=== PATIENT | female | born 1940 | race Caucasian/White ===

== ENCOUNTER 2019-09-03 09:45 | Day surgery (SDC) | payer MEDICARE, OTHER ==
--- NOTE | 2019-09-03 08:34 | HP ---
DATE OF SURGERY: 09/03/2019 HISTORY OF PRESENT ILLNESS: The patient is a 78 year-old with dementia. History taken from . She had a positive Cologuard. No bloody stools. No change in bowel habits. No pain. PAST MEDICAL HISTORY: Dementia. She was not able to answer the questions. Anxiety. Depression. PAST SURGICAL HISTORY: Cataract surgery. Appendectomy. section. Orthopedic surgery. MEDICATIONS: Aspirin, atorvastatin, bupropion, potassium, clonazepam, clopidogrel, amlodipine, cholecalciferol, aripiprazole, losartan, donepezil, memantine, melatonin, vitamin E, vitamin D3. ALLERGIES: CEPHALEXIN. PENICILLIN. SULFA. CEFINIR. FAMILY HISTORY: Negative in regards to this problem. Negative for colon cancer. SOCIAL HISTORY: No smoking or alcohol abuse. REVIEW OF SYSTEMS: Fourteen systems reviewed. No chest pain or palpitations other systems negative or noncontributory as above and per preadmission questionnaire. PHYSICAL EXAMINATION: GENERAL: A chronically ill female. HEENT: Sclerae nonicteric. NECK: No JVD. CHEST: Equal excursion, nonlabored breathing. CVS: Regular rate and rhythm. ABDOMEN: Soft. No peritoneal signs. EXTREMITIES: No significant edema. NEURO: Alert but she does have dementia, moving extremities symmetrically. No gross motor deficits noted. RECTAL: Deferred timed to endoscopy exam. IMPRESSION: Need for follow up screening colonoscopy. I feel she would benefit from colonoscopy. Risks and benefits explained in detail but not limited to bleeding or infection, risk of bowel injury or perforation possibly requiring open procedure, risk of missed or nondiagnosis or incomplete exam possibly requiring barium enema, other studies or procedures, general risk of anesthesia or sedation, risk of bowel prep but not limited to. The understands and agrees to the planned procedure, will proceed with outpatient follow up screening colonoscopy.
[~2019-09-03 09:45] MED LIST: Lactated Ringers 1,000 ML IV ONE; Lactated Ringers 1,000 ML IV SCH
[2019-09-03] MEDS ORDERED: DIPRIVAN 200 MG/20 ML IV ONE ×2 (10:25→10:51)
[2019-09-03] MEDS ORDERED: Ketamine HCl 50 MG/ML ONE (10:25)
[2019-09-03] MEDS ORDERED: Lactated Ringers 1,000 ML IV ONE (11:19)
--- NOTE | 2019-09-03 12:48 | OP ---
SURGERY DATE/TIME: 09/03/2019 1030 PREOPERATIVE DIAGNOSIS: Need for screening colonoscopy, question whether she had a positive Cologuard or not. No recent colonoscopy. Need for screening. POSTOPERATIVE DIAGNOSES: 1) Poor bowel prep. 2) Small raised lesion rectum versus hyperplastic lesion, path pending. 3) Small internal hemorrhoids. PROCEDURES: 1) Colonoscopy what was felt to be the cecal area palpation of right lower quadrant. However, poor prep limiting exam for small to medium lesion. 2) Hot biopsy raised lesion versus hyperplastic lesion rectum. SURGEON: Dr. Elmo Ty. ANESTHESIA: MAC. ESTIMATED BLOOD LOSS: Minimal. INDICATIONS: As noted above. Risks and benefits explained in detail but not limited to and consent obtained. DESCRIPTION OF PROCEDURE AND FINDINGS: The patient is taken to the operating room. MAC anesthesia introduced. After official time out and no disagreement with planned procedure, digital rectal exam did not reveal any rectal masses. She did have some small internal hemorrhoids. Video colonoscope inserted and passed up through the tortuous poorly prepped colon. Liquidy semi-solid and solid stool throughout the colon. The scope was able to be passed down the transverse colon to the right lower quadrant, palpation right lower quadrant. It seemed to be the cecal area although given the very limited prep, I feel it is best to go ahead and do barium enema for further evaluation. On slow and careful withdrawal of the scope over the next 7 or 8 minutes there were no signs of any large polyps, masses or obstructing lesions. Liquidy semi-solid suctioned as well as possible but very much limited the exam as the chunks were too large to suction through the scope. Otherwise there were no signs of any obvious large obstructing lesions but again small to medium size polyps or lesions may not have been able to be seen. Back to the rectum had small internal hemorrhoids, had small raised lesions versus hyperplastic lesion versus early polyp removed with hot biopsy forceps with brief bursts of cautery. Good hemostasis noted. Findings discussed with the family out in the waiting area. Options were discussed. It was felt she would benefit from consideration of dual or air contrast barium enema if it showed anything specific or concerning might need to repeat the scope. Other option would be to reprep and bring her back for the same procedure with better bowel prep. feels try the barium enema first. Will get the barium enema and get the biopsy results and see her back in the office after the results.
[2019-09-03 12:51] VITALS: BP 147/71; PULSE 72; O2SAT 95
== END 2019-09-03 12:35 | disposition home or self-care (01) ==
LOC: SDC 09:45
PROVIDERS: ATTEND Surgery
DX: Z12.11 Encounter for screening for malignant neoplasm of colon (principal); D12.8 Benign neoplasm of rectum; K64.8 Other hemorrhoids; K62.89 Other specified diseases of anus and rectum
CPT/HCPCS: 88305; 99100; J2704

== ENCOUNTER 2020-10-13 12:25 | Emergency (ER) | payer MEDICARE, OTHER ==
[2020-10-13 13:35] VITALS: BP 134/86
--- NOTE | 2020-10-13 14:55 | XRAY ---
Exam: CT of the abdomen and pelvis without IV contrast from 10/13/2020. CTDI: 8.93 mGy Comparison: None. Indication: 80-year-old female with no bowel movement for almost 2 weeks; ? Obstruction. The patient has a history of prior appendectomy and 2 sections. Technique: Non-IV contrast axial images were obtained through the abdomen and pelvis without IV contrast. No oral contrast was given. Reconstructed coronal and sagittal images were created and reviewed. Findings: The visualized heart appears of unremarkable size. There is a mild retrocardiac hiatal hernia measuring at least 3.25 cm in diameter. The visualized lung bases reveal minimal scattered linear atelectasis/scarring at the left lung base. Assessment of the solid organs is limited without the use of IV contrast. A couple small calcified granulomas are seen within the liver. Otherwise, the liver appears unremarkable without evidence of definite mass or intrahepatic biliary duct distention. The gallbladder is partially distended and reveals no dense calcifications within it. The spleen is of normal size and reveals no mass. There appears to be a small round splenule measuring 1.3 cm in diameter at the medial margin of the lower portion of the spleen on axial image #28 of series 2. The pancreas and adrenal glands appear unremarkable. The kidneys appear of average size and reveal no calculi, hydronephrosis, or definite mass. Moderate atherosclerotic calcification is seen within the abdominal aorta, the proximal portion of both renal arteries, and branches of the iliac arteries. No abdominal aortic aneurysm or abnormal retroperitoneal lymphadenopathy is seen. There is no free intraperitoneal air. A minimal fat-containing umbilical hernia is seen on the midline sagittal image #112. No bowel containing ventral hernia is seen. There is abundant colonic stool seen throughout its course consistent with significant constipation. However, I see no evidence of bowel obstruction. The patient is status post appendectomy by history. No definite bowel wall thickening is seen. Minimal high attenuation material is seen within the gastric lumen, probably representing medication. The uterus appears relatively small and is anteflexed. A small calcification is seen within the anterior aspect of the uterine fundus, perhaps representing a small calcified fibroid. No abnormal adnexal mass or enlarged pelvic lymph nodes are seen. There is no free intraperitoneal fluid. The pelvic sidewalls appear unremarkable. Again, abundant stool is seen within the visualized rectosigmoid colon. The urinary bladder is only minimally distended with urine. The skeleton reveals demineralization of the bones. No acute fracture or aggressive bone lesion is seen. Prominent anterolateral osteophytes are seen within the lower thoracic spine. There is mild multilevel degenerative disc disease throughout the lumbar spine, most pronounced at L5-S1. A Schmorl's node is seen within the left aspect of the inferior vertebral endplate of L4. I believe there is some mild central canal stenosis at L5-S1 (see axial image #51 of series 2). Impression: 1. Abundant stool is seen throughout the colon consistent with significant constipation. However, I see no abnormal bowel distention to suggest mechanical bowel obstruction. Nor is there free air or free fluid. 2. Mild retrocardiac hiatal hernia. 3. No other acute process is seen within the abdomen or pelvis. 4. Skeletal findings, as discussed above.
--- NOTE | 2020-10-13 15:42 | ERPHSYRPT ---
- History of Present Illness Time Seen by Provider: 10/13/20 12:50 Source: patient Exam Limitations: no limitations Patient Subjective Stated Complaint: pt reports constipation with last normal BM approx 8 days ago, denies any abdominal pain, nausea, vomiting. pt with fabian, at bedside as historian. states approx 10 years ago pt had this same issue and was dx with a "twisted intestine". states the issue resolved on its own. Triage Nursing Assessment: pt is aox3 at this time, pupils perrl, afebrile, resps easy and non labored, cap refill < 3 seconds, radial pulses strong and equal, pt abd soft, non tender, appears distended, bowel sounds normoactive x 4. pt skin pink warm dry. Physician History: Patient is a 80-year-old female with a history of dementia/poor historian presents to our ED with complaints of constipation x8 days. Patient is here with her who is concerned. However patient denies pain. No nausea or vomiting. No diarrhea. No trauma. No fever. Patient is currently asymptomatic. states they have tried many methods of laxative including suppository magnesium citrate with no production of stool. Patient and voiced no other complaints or concerns at this time. Timing/Duration: day(s) (8 days) Severity: moderate Modifying Factors: Improves With: nothing Associated Symptoms: denies symptoms Allergies/Adverse Reactions: cephalexin monohydrate [From Keflex] Allergy (Mild, Verified 10/13/20 13:02) Penicillins Allergy (Mild, Verified 10/13/20 13:02) Sulfa (Sulfonamide Antibiotics) [Sulfa(Sulfonamide Antibiotics)] Allergy (Mild, Verified 10/13/20 13:02) cefdinir [Cefdinir] Allergy (Verified 10/13/20 13:02) Home Medications: Amlodipine Besylate 5 mg [Norvasc 5 mg] 5 mg PO DAILY 05/30/13 [History] Bupropion HCl [Wellbutrin] 200 mg PO BID 07/21/14 [History] Clonazepam 0.5 mg [Klonopin 0.5 MG] 0.25 mg PO BID 07/21/14 [History] Clonazepam 0.5 mg [Klonopin 0.5 MG] 1 mg PO HS 07/21/14 [History] Losartan Potassium 25 mg PO DAILY 04/17/15 [History] Melatonin/Pyridoxine [Melatonin 5 mg Tablet] 10 mg PO HS 04/17/15 [History] Aripiprazole [Abilify] 2.5 mg PO BID 11/11/16 [History] Cholecalciferol (Vitamin D3) [Vitamin D] 1,000 unit PO DAILY 11/11/16 [History] Donepezil HCl 10 mg [Aricept 10 MG] 10 mg PO DAILY 11/11/16 [History] Vitamin E 400 unit PO DAILY 11/11/16 [History] Memantine HCl [Namenda] 10 mg PO BID 11/23/17 [History] Hx Tetanus, Diphtheria Vaccination/Date Given: Yes Hx Influenza Vaccination/Date Given: Yes Hx Pneumococcal Vaccination/Date Given: Yes Immunizations Up to Date: Yes Travel Risk - International Travel Have you traveled outside of the country in past 3 weeks: No If Yes, where;: n - Coronavirus Screening Are you exhibiting any of the following symptoms?: No Close contact with a COVID-19 positive Pt in past 14-21 Days: No - Review of Systems Constitutional: No Symptoms, No Fever, No Chills Eyes: No Symptoms Ears, Nose, & Throat: No Symptoms Respiratory: No Symptoms, No Cough, No Dyspnea Cardiac: No Symptoms, No Chest Pain, No Edema, No Syncope Abdominal/Gastrointestinal: No Symptoms, No Abdominal Pain, No Nausea, No Vomiting, No Diarrhea Genitourinary Symptoms: No Symptoms, No Dysuria Musculoskeletal: No Symptoms, No Back Pain, No Neck Pain Skin: No Symptoms, No Rash Neurological: No Symptoms, No Dizziness, No Focal Weakness, No Sensory Changes Psychological: No Symptoms Endocrine: No Symptoms Hematologic/Lymphatic: No Symptoms Immunological/Allergic: No Symptoms All Other Systems: Reviewed and Negative - Past Medical History Pertinent Past Medical History: Yes Neurological History: Dementia, Migraines ENT History: Cataracts Cardiac History: No Pertinent History Respiratory History: No Pertinent History Endocrine Medical History: No Pertinent History Musculoskeletal History: Osteoarthritis GI Medical History: No Pertinent History History: Other Psycho-Social History: Anxiety, Depression, Panic Disorder Female Reproductive Disorders: No Pertinent History Other Medical History: Pt spouse states that 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, 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 - Past Surgical History Past Surgical History: Yes Neuro Surgical History: No Pertinent History Cardiac: Cardiac Catheterization, Cardiac Stent Respiratory: No Pertinent History Gastrointestinal: Appendectomy Genitourinary: No Pertinent History Musculoskeletal: Orthopedic Surgery Female Surgical History: Section Other Surgical History: cataract surgery, right arm surgery - Social History Smoking Status: Former smoker How long have you smoked: 20 Exposure to second hand smoke: No Drug Use: none Patient Lives Alone: No - Nursing Vital Signs Nursing Vital Signs: Initial Vital Signs Temperature 97.5 F 10/13/20 12:44 Pulse Rate 75 10/13/20 12:44 Respiratory Rate 20 10/13/20 12:44 Blood Pressure 126/66 10/13/20 12:44 O2 Sat by Pulse Oximetry 96 10/13/20 12:44 Pain Scale Pain Intensity 0 - Physical Exam General Appearance: no apparent distress, alert Eye Exam: PERRL/EOMI, eyes nml inspection Ears, Nose, Throat Exam: normal ENT inspection, TMs normal, pharynx normal, moist mucous membranes Neck Exam: normal inspection, non-tender, supple, full range of motion Respiratory Exam: normal breath sounds, lungs clear, No respiratory distress Cardiovascular Exam: regular rate/rhythm, normal heart sounds, normal peripheral pulses Gastrointestinal/Abdomen Exam: soft, normal bowel sounds, No tenderness, No mass Back Exam: normal inspection, normal range of motion, No CVA tenderness, No vertebral tenderness Extremity Exam: normal inspection, normal range of motion, pelvis stable Neurologic Exam: alert, oriented x 3, cooperative, normal mood/affect, sensation nml, No motor deficits Skin Exam: normal color, warm, dry, No rash Lymphatic Exam: No adenopathy SpO2 Interpretation: normal SpO2: 97 O2 Delivery: Room Air - Course Nursing assessment & vital signs reviewed: Yes - CT Exams Abdomen/Pelvis CT Interpretation: Tele-radiologist Report (CAT scan reveals retrocardiac hiatal hernia, aortic calcification, small fat-containing umbilical hernia, constip ation and a small uterine fibroid. No bowel obstruction.) Ordered Tests: Active Orders 24 hr Category Date Time Status ABDOMEN AND PELVIS W/0 CONTRAS [CT] Stat Exams 10/13/20 13:01 Completed - Progress Progress: unchanged, improved Progress Note: 10/13/20 15:49 Patient reassessed. She is comfortable. We offered a enema in our ED however states that he has enema at home. They will give little more time to pass stool. No indication for further work-up at this time. Will discharge home. Patient and agree to follow-up with primary care doctor within 48 hours for reevaluation. Counseled pt/family regarding: diagnosis, need for follow-up, rad results - Departure Departure Disposition: Home Clinical Impression: Hiatal hernia, Aortic calcification, Umbilical hernia, Constipation, Uterine fibroid Condition: Stable Critical Care Time: No Referrals: PAULA CAPONE [Primary Care Provider] -
[2020-10-13 16:05] VITALS: PULSE 80; O2SAT 98
== END 2020-10-13 16:05 | disposition home or self-care (01) ==
LOC: ED 12:25
DX: K44.9 Diaphragmatic hernia without obstruction or gangrene (principal); I70.0 Atherosclerosis of aorta; K42.9 Umbilical hernia without obstruction or gangrene; K59.00 Constipation, unspecified; D25.9 Leiomyoma of uterus, unspecified; F03.90 Unspecified dementia, unspecified severity, without behavioral disturbance, psychotic disturbance, mood disturbance, and anxiety; Z79.899 Other long term (current) drug therapy; F41.9 Anxiety disorder, unspecified; F32.9 Major depressive disorder, single episode, unspecified
CPT/HCPCS: 74176; 99283

== ENCOUNTER 2021-03-31 07:46 | Emergency (ER) | payer MEDICARE ==
--- NOTE | 2021-03-31 08:09 | ERPHSYRPT ---
- History of Present Illness Time Seen by Provider: 03/31/21 07:47 Source: patient, family Patient Subjective Stated Complaint: cough, body aches Triage Nursing Assessment: pt to ED c/o cough and body aches for a few days. was seen in PCP office and given "shot and prescription for cough" but did not feel much better after leaving. no improvement since as reported by . productive wet sounding cough noted. no diff breathing or SOB reported. denies COVID exposure to their knowledge. Physician History: 80 years old female with episode history of dementia presented in the ER with chief complaint of cough congestion, sore throat generalized body aches for the last few days. She was evaluated outpatient, given symptomatic treatment with no significant relief. Patient reports having bouts of coughing which was initially dry but lately have some sputum production causing deep cough. Had sore throat initially which is improving now but patient feels worn out, fatigued with no energy. No fever or chills reported. No difficulty breathing, palpitations or chest pain but generalized soreness because of coughing. Did have Covid vaccine. Timing/Duration: day(s) (4), intermittent, gradual onset, worse Cough Quality/Degree: dry cough, productive cough Possible Cause: unknown cause Associated Symptoms: chest pain/soreness, cough, muscle aches, nasal congestion, sinus infection, sore throat, No fever, No shortness of breath Allergies/Adverse Reactions: cephalexin monohydrate [From Keflex] Allergy (Mild, Verified 03/31/21 08:03) Penicillins Allergy (Mild, Verified 03/31/21 08:03) Sulfa (Sulfonamide Antibiotics) [Sulfa(Sulfonamide Antibiotics)] Allergy (Mild, Verified 03/31/21 08:03) cefdinir [Cefdinir] Allergy (Verified 03/31/21 08:03) Home Medications: Amlodipine Besylate 5 mg [Norvasc 5 mg] 5 mg PO DAILY 05/30/13 [History] Bupropion HCl [Wellbutrin] 200 mg PO BID 07/21/14 [History] Clonazepam 0.5 mg [Klonopin 0.5 MG] 0.25 mg PO BID 07/21/14 [History] Clonazepam 0.5 mg [Klonopin 0.5 MG] 1 mg PO HS 07/21/14 [History] Losartan Potassium 25 mg PO DAILY 04/17/15 [History] Melatonin/Pyridoxine [Melatonin 5 mg Tablet] 10 mg PO HS 04/17/15 [History] Aripiprazole [Abilify] 2.5 mg PO BID 11/11/16 [History] Cholecalciferol (Vitamin D3) [Vitamin D] 1,000 unit PO DAILY 11/11/16 [History] Donepezil HCl 10 mg [Aricept 10 MG] 10 mg PO DAILY 11/11/16 [History] Vitamin E 400 unit PO DAILY 11/11/16 [History] Memantine HCl [Namenda] 10 mg PO BID 11/23/17 [History] Hx Tetanus, Diphtheria Vaccination/Date Given: Yes Hx Influenza Vaccination/Date Given: Yes Hx Pneumococcal Vaccination/Date Given: Yes Immunizations Up to Date: Yes Travel Risk - International Travel Have you traveled outside of the country in past 3 weeks: No - Coronavirus Screening Are you exhibiting any of the following symptoms?: Yes Symptoms: Cough: New Onset, Headaches/Body Aches/Fatigue Close contact with a COVID-19 positive Pt in past 14-21 Days: No - Vaccine Status Have you recieved a Covid-19 vaccination: Yes 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: [employer] - Vaccination Dates Date of 2cond Vaccination (if applicable): less than 3 mo ago - Review of Systems Constitutional: Fatigue, Weakness Eyes: No Symptoms Ears, Nose, & Throat: Nose Congestion, Throat Swelling Respiratory: Cough Cardiac: No Symptoms Abdominal/Gastrointestinal: No Symptoms Genitourinary Symptoms: No Symptoms Musculoskeletal: Myalgias Skin: No Symptoms Neurological: No Symptoms Psychological: Anxiety, Depression, Memory Loss Endocrine: No Symptoms Hematologic/Lymphatic: No Symptoms Immunological/Allergic: No Symptoms - Past Medical History Pertinent Past Medical History: Yes Neurological History: Dementia, Migraines ENT History: Cataracts Cardiac History: No Pertinent History Respiratory History: No Pertinent History Endocrine Medical History: No Pertinent History Musculoskeletal History: Osteoarthritis GI Medical History: No Pertinent History History: Other Psycho-Social History: Anxiety, Depression, Panic Disorder Female Reproductive Disorders: No Pertinent History Other Medical History: Pt spouse states that 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, 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 - Past Surgical History Past Surgical History: Yes Neuro Surgical History: No Pertinent History Cardiac: Cardiac Catheterization, Cardiac Stent Respiratory: No Pertinent History Gastrointestinal: Appendectomy Genitourinary: No Pertinent History Musculoskeletal: Orthopedic Surgery Female Surgical History: Section Other Surgical History: cataract surgery, right arm surgery - Social History Smoking Status: Former smoker How long have you smoked: 20 Exposure to second hand smoke: No Drug Use: none Patient Lives Alone: No - Female History Hx Now: No - Nursing Vital Signs Nursing Vital Signs: Initial Vital Signs Temperature 98.7 F 03/31/21 07:53 Pulse Rate 77 03/31/21 07:53 Respiratory Rate 20 03/31/21 07:53 Blood Pressure 157/82 03/31/21 07:53 O2 Sat by Pulse Oximetry 95 03/31/21 07:53 Pain Scale Pain Intensity 0 - Physical Exam General Appearance: no apparent distress, alert Eye Exam: PERRL/EOMI, eyes nml inspection Ears, Nose, Throat Exam: TMs normal, pharyngeal erythema Neck Exam: normal inspection, non-tender, supple, full range of motion Respiratory Exam: normal breath sounds, lungs clear, No chest tenderness Cardiovascular Exam: regular rate/rhythm, normal heart sounds Gastrointestinal/Abdomen Exam: soft, normal bowel sounds, No tenderness Back Exam: normal inspection, normal range of motion Extremity Exam: normal inspection, normal range of motion Neurologic Exam: alert, oriented x 3, cooperative Skin Exam: normal color SpO2 Interpretation: normal SpO2: 98 O2 Delivery: Room Air Ordered Tests: Active Orders 24 hr Category Date Time Status CHEST 2 VIEWS (PA AND LAT) Stat Exams 03/31/21 08:04 Completed BLOOD CULTURE Stat Lab 03/31/21 08:35 Received CBC W DIFF Stat Lab 03/31/21 08:30 Completed CMP Stat Lab 03/31/21 08:30 Completed INFLUENZA A+B ANIKA Stat Lab 03/31/21 08:30 Completed Lactic Acid Stat Lab 03/31/21 08:03 Completed NT PRO BNP Stat Lab 03/31/21 08:30 Completed TROPONIN Q3H Lab 03/31/21 08:30 Completed TROPONIN Q3H Lab 03/31/21 11:15 Ordered TROPONIN Q3H Lab 03/31/21 14:15 Ordered TROPONIN Q3H Lab 03/31/21 17:15 Ordered TROPONIN Q3H Lab 03/31/21 20:15 Ordered Lab/Rad Data: Laboratory Result Diagrams 03/31/21 08:30 03/31/21 08:30 Laboratory Results 03/31/21 03/31/21 03/31/21 Range/Units 08:30 08:30 08:30 WBC (4.0-10.5) K/mm3 RBC (4.1-5.4) M/mm3 Hgb (12.0-16.0) gm/dl Hct (35-47) % MCV (78-100) fl MCH (26-32) pg MCHC (32-36) g/dl RDW (11.5-14.0) % Plt Count (150-450) K/mm3 MPV (7.5-11.0) fl Gran % (36.0-66.0) % Eos # (Auto) (0-0.5) Absolute Lymphs (auto) (1.0-4.6) Absolute Monos (auto) (0.0-1.3) Lymphocytes % (24.0-44.0) % Monocytes % (0.0-12.0) % Eosinophils % (0.00-5.0) % Basophils % (0.0-0.4) % Absolute Granulocytes (1.4-6.9) Basophils # (0-0.4) Sodium 139 (137-145) mmol/L Potassium 3.9 (3.5-5.1) mmol/L Chloride 104 (98-107) mmol/L Carbon Dioxide 29 (22-30) mmol/L Anion Gap 10.4 (5-15) MEQ/L BUN 22 H (7-17) mg/dL Creatinine 0.76 (0.52-1.04) mg/dL Estimated GFR > 60.0 ML/MIN Glucose 90 (74-106) mg/dL Lactic Acid (0.4-2.0) Calcium 9.3 (8.4-10.2) mg/dL Total Bilirubin 0.50 (0.2-1.3) mg/dL AST 25 (14-36) U/L ALT 18 (0-35) U/L Alkaline Phosphatase 90 (38-126) U/L Troponin I < 0.012 (0.000-0.034) ng/mL NT-Pro-B Natriuret Pep 71.9 (0-1800) pg/mL Serum Total Protein 6.6 (6.3-8.2) g/dL Albumin 4.6 (3.5-5.0) g/dL Influenza Type A Ag NEGATIVE (NEGATIVE) Influenza Type B Ag NEGATIVE (NEGATIVE) 03/31/21 03/31/21 Range/Units 08:30 08:03 WBC 7.4 (4.0-10.5) K/mm3 RBC 4.15 (4.1-5.4) M/mm3 Hgb 13.0 (12.0-16.0) gm/dl Hct 41.9 (35-47) % MCV 101.0 H (78-100) fl MCH 31.3 (26-32) pg MCHC 31.0 L (32-36) g/dl RDW 12.4 (11.5-14.0) % Plt Count 145 L (150-450) K/mm3 MPV 10.6 (7.5-11.0) fl Gran % 78.0 H (36.0-66.0) % Eos # (Auto) 0.15 (0-0.5) Absolute Lymphs (auto) 0.72 L (1.0-4.6) Absolute Monos (auto) 0.72 (0.0-1.3) Lymphocytes % 9.8 L (24.0-44.0) % Monocytes % 9.8 (0.0-12.0) % Eosinophils % 2.0 (0.00-5.0) % Basophils % 0.4 (0.0-0.4) % Absolute Granulocytes 5.76 (1.4-6.9) Basophils # 0.03 (0-0.4) Sodium (137-145) mmol/L Potassium (3.5-5.1) mmol/L Chloride (98-107) mmol/L Carbon Dioxide (22-30) mmol/L Anion Gap (5-15) MEQ/L BUN (7-17) mg/dL Creatinine (0.52-1.04) mg/dL Estimated GFR ML/MIN Glucose (74-106) mg/dL Lactic Acid 1.0 (0.4-2.0) Calcium (8.4-10.2) mg/dL Total Bilirubin (0.2-1.3) mg/dL AST (14-36) U/L ALT (0-35) U/L Alkaline Phosphatase (38-126) U/L Troponin I (0.000-0.034) ng/mL NT-Pro-B Natriuret Pep (0-1800) pg/mL Serum Total Protein (6.3-8.2) g/dL Albumin (3.5-5.0) g/dL Influenza Type A Ag (NEGATIVE) Influenza Type B Ag (NEGATIVE) - Progress Progress: unchanged Air Movement: good Progress Note: 03/31/21 10:04 80 years old is evaluated for worsening cough for the last few days. Patient has no wheezing or difficulty breathing. Work-up showed normal white count, grossly unremarkable chemistries. Chest x-ray negative for any acute cardiopulmonary findings. Negative flu. I believe patient has bronchitis and will give Z-Xiang along with albuterol and cough syrup to take as needed. Follow- up with primary care physician is advised. Blood Culture(s) Obtained: Yes Antibiotics given: Yes Counseled pt/family regarding: lab results, diagnosis, need for follow-up, rad results - Departure Departure Disposition: Home Clinical Impression: Acute bronchitis Qualifiers: Bronchitis organism: unspecified organism Qualified Code(s): J20.9 - Acute bronchitis, unspecified Condition: Stable Critical Care Time: No Referrals: PAULA CAPONE [Primary Care Provider] - (12 days for reevaluation) Instructions: Cough, Adult (DC) Additional Instructions: Follow-up with primary care physician for reevaluation. Use [id number] cough syrup like Robitussin. Return to ER for worsening cough or if develop fever chills/shortness of breath. Prescriptions: Albuterol 8 gm Mdi Hfa [Ventolin Hfa MDI] 8 gm IH Q4H #1 [email or web address] Azithromycin 250 mg [Zithromax 250 MG TABLET] 250 mg PO ZPACK #6 tablet
[2021-03-31 08:59] LABS: Absolute Neutrophil Ct (ANC) 5.76 (1.4-6.9); BASOPHIL % 0.4 % (0.0-0.4); Basophil (Absolute #) 0.03 (0-0.4); Eosinophil (Absolute #) 0.15 (0-0.5); Hematocrit 41.9 % (35-47); Lymphocyte (Absolute #) 0.72 (1.0-4.6); Lymphocytes % 9.8 % (24.0-44.0); Mean Corpuscular Hemoglobin 31.3 pg (26-32); Mean Platelet Volume 10.6 fl (7.5-11.0); Monocyte (Absolute #) 0.72 (0.0-1.3); Monocytes % 9.8 % (0.0-12.0); Platelet Count 145 K/mm3 (150-450); Red Blood Count 4.15 M/mm3 (4.1-5.4); Red Cell Distribution Width 12.4 % (11.5-14.0); White Blood Count 7.4 K/mm3 (4.0-10.5)
--- NOTE | 2021-03-31 09:03 | XRAY ---
Indication: Cough and body ache one week. Comparison: March 20, 2021. AP/lateral chest remains hyperinflated and clear. Heart not enlarged. No new/acute cardiopulmonary abnormalities.
[2021-03-31 09:19] LABS: INFLUENZA A NEGATIVE (NEGATIVE); INFLUENZA B NEGATIVE (NEGATIVE)
[2021-03-31 09:46] LABS: ALBUMIN 4.6 g/dL (3.5-5.0); ALKALINE PHOSPHATASE 90 U/L (38-126); ANION GAP 10.4 MEQ/L (5-15); BLOOD UREA NITROGEN 22 mg/dL (7-17); CHLORIDE 104 mmol/L (98-107); Calcium 9.3 mg/dL (8.4-10.2); Carbon Dioxide 29 mmol/L (22-30); Creatinine 1 0.76 mg/dL (0.52-1.04); EST GLOMERULAR FILTRATION RATE > 60.0 ML/MIN; Glucose 90 mg/dL (74-106); NT PRO BNP 71.9 pg/mL (0-1800); Potassium 3.9 mmol/L (3.5-5.1); SGOT/AST 25 U/L (14-36); SGPT/ALT 18 U/L (0-35); SODIUM 139 mmol/L (137-145); Total Protein 6.6 g/dL (6.3-8.2)
[2021-03-31 10:06] VITALS: O2SAT 98
[2021-03-31 10:09] VITALS: BP 134/68; PULSE 73
== END 2021-03-31 10:23 | disposition home or self-care (01) ==
LOC: ED 07:46
DX: J20.9 Acute bronchitis, unspecified (principal); Z79.899 Other long term (current) drug therapy
CPT/HCPCS: 36415; 71046; 80053; 83605; 83880; 84484; 85025; 87040; 87400; 99284